=== PATIENT | female | born 1980 | race Two or more races ===

== ENCOUNTER 2016-11-03 12:51 | Emergency (ER) | payer SELFPAY ==
[~2016-11-03] VITALS: Ht 175.3 cm; Wt 74.8 kg
[2016-11-03] MEDS ORDERED: NKM (13:21)
[2016-11-03 14:51] LABS: BASOPHILS % (AUTO) 0.6 % (0.0-2.0); EOSINOPHILS % (AUTO) 1.2 % (0.0-3.0); LYMPHOCYTES % (AUTO) 38.9 % (20.0-45.0); MEAN CORPUSCULAR HEMOGLOBIN 34.2 PG (27.0-31.0); MEAN CORPUSCULAR HGB CONC 34.6 G/DL (32.0-36.0); MEAN CORPUSCULAR VOLUME 99 FL (80-99); MEAN PLATELET VOLUME 6.2 FL (6.5-10.1); MONOCYTES % (AUTO) 12.4 % (1.0-10.0); NEUTROPHILS % (AUTO) 46.8 % (45.0-75.0); PLATELET COUNT 334 K/UL (150-450); RED BLOOD COUNT 4.23 M/UL (4.20-5.40); RED CELL DISTRIBUTION WIDTH 10.4 % (11.6-14.8); WHITE BLOOD COUNT 5.7 K/UL (4.8-10.8)
[2016-11-03 14:52] VITALS: BP 120/75
[2016-11-03 14:52] LABS: APPEARANCE,URINE CLEAR; KETONES,URINE NEGATIVE (NEGATIVE); LEUKOCYTE ESTERASE ,URINE NEGATIVE (NEGATIVE); NITRITE,URINE NEGATIVE (NEGATIVE); PH,URINE 6 (4.5-8.0); PROTEIN,URINE NEGATIVE (NEGATIVE); UROBILINOGEN,URINE NORMAL MG/DL (0.0-1.0)
[2016-11-03] MEDS ORDERED: PEPCID20 MG ORAL (14:52)
[2016-11-03] MEDS ORDERED: ZOFRAN ODT4 MG ORAL (14:52)
--- NOTE | 2016-11-03 14:57 | Emergency Room Report ---
History of Present Illness General Chief Complaint: Nausea, Vomiting, and Diarrhea Source: Patient Present Illness HPI 36 YO F presents with 3 days nausea, watery diarrhea and watery vomiting. Assoc with intermittent abd spasm. Patient states [facility] when she was [place] for business - continued to work then and currently - mom who is RN told patient to go to ER because last episode of vomiting she noticed "blood tinged vomit." Denies previous abd/pelvic surgery, on AC/ASA, foreign travel, fever/chills, urinary complaints or sick contacts. Has been taking lots of OTC "Stomach meds" for 3 days with some improvement. Last episode vomiting or diarrhea was last night. Allergies: Coded Allergies: No Known Allergies (Unverified , 11/03/16) Patient History Past Medical History: none Past Surgical History: none Pertinent Family History: none Social History: Denies: alcohol use, drug use, smoking Now: No : 0 Para: 0 Immunizations: UTD Reviewed Nursing Documentation: PMH: Agreed, PSxH: Agreed Nursing Documentation-PMH Past Medical History: No Stated History Review of Systems All Other Systems: negative except mentioned in HPI Physical Exam Vital Signs Date Time Temp Pulse Resp B/P Pulse Ox O2 Delivery O2 Flow Rate FiO2 11/03/16 13:14 98.2 59 16 120/75 99 Sp02 EP Interpretation: reviewed, normal General Appearance: normal inspection, well appearing, no apparent distress, alert, GCS 15, non-toxic Head: normocephalic, atraumatic Eyes: bilateral eye EOMI, bilateral eye PERRL ENT: normal ENT inspection, hearing grossly normal, normal voice Neck: normal inspection, full range of motion, supple, no bony tend Respiratory: normal inspection, lungs clear, normal breath sounds, no respiratory distress, no retraction, no wheezing Cardiovascular #1: regular rate, rhythm, no edema Gastrointestinal: normal inspection, normal bowel sounds, non tender, soft, no mass, no organomegaly, no bruit, non-distended, no guarding, no hernia, no pulsatile mass, no rebound Musculoskeletal: normal inspection, back normal, normal range of motion, Pippa' s Sign negative Neurologic: normal inspection, alert, oriented x3, responsive, environmental assistant III-XII nml as tested, motor strength/tone normal, speech normal Psychiatric: normal inspection, judgement/insight normal Skin: normal inspection Lymphatic: normal inspection Medical Decision Making Diagnostic Impression: Primary Impression: Nausea, vomiting, and diarrhea ER Course 36 YO F with likely viral gastroenteritis. VSS. Afebrile DC Labs: H&H stable. No leuks. Lipase and bili normal. Patient feels much better. Additional anti-emetic given in ED Patient was hydrated with IVF Tolerating PO Exam continues to be non-focal on serial exam of abdomen Likely viral gastroenteritis Low suspicion for acute bacterial or surgical process at this time Rx Pepcid, Zofran Advised BRAT diet, fluids and PMD followup Understands to Return to ER for worsening, focal abd pain, fever/chills or inability to tolerate PO Last Vital Signs Date Time Temp Pulse Resp B/P Pulse Ox O2 Delivery O2 Flow Rate FiO2 11/03/16 13:14 98.2 59 16 120/75 99 Status: improved Disposition: HOME, SELF-CARE Condition: Improved Scripts Famotidine (PEPCID) 20 Mg Tablet 20 MG ORAL BID for 7 Days, #14 TAB 0 Refills Prov: JUAN CONTEH M.D. 11/03/16 Ondansetron Odt* (ZOFRAN ODT*) 4 Mg Tab.rapdis 4 MG ORAL Q6H Y for Nausea & Vomiting, #20 TAB 0 Refills Prov: JUAN CONTEH M.D. 11/03/16 Referrals: NOT CHOSEN [facility]/,REFERRING (PCP) Patient Instructions: Viral Gastroenteritis, Adult, [id number] Additional Instructions: - eat only bland meals - bananas/rice/apple sauce/toast as tolerated - Drink plenty of fluids - Follow up with primary care doctor in 2-3 days if no improvement - Take pepcid twice daily until symptoms resolve - Take zofran for nausea - Return to ER for severe worsening of pain in one area with fever and uncontrollable vomiting JUAN CONTEH M.D. Nov 03, 2016 14:57
[2016-11-03] MEDS ORDERED: Famotidine 20 MG/ 2ML VIAL IVP ONE (15:00)
[2016-11-03 15:04] LABS: INR 1.1 (0.9-1.1); PROTHROMBIN TIME 10.8 SEC (9.30-11.50)
[2016-11-03 15:09] LABS: ALANINE AMINOTRANSFERASE 22 U/L (3-33); ALBUMIN/GLOBULIN RATIO 1.5 (1.0-2.7); ANION GAP 17 (5-15); ASPARTATE AMINO TRANSFERASE 24 U/L (5-40); CALCIUM 9.1 mg/dL (8.6-10.2); CARBON DIOXIDE 25 mEQ/L (20-30); CHLORIDE 96 mEQ/L (98-107); CREATININE 0.8 mg/dL (0.5-0.9); GLOMERULAR FILTRATION RATE > 60 mL/min (>60); HEMOLYSIS 6; LIPASE 57 U/L (< 60); POTASSIUM 3.6 mEQ/L (3.4-4.9); SODIUM 138 mEQ/L (135-145); TOTAL PROTEIN 7.4 g/dL (6.6-8.7)
[2016-11-03 15:24] VITALS: BP 120/75
== END 2016-11-03 15:31 | disposition home or self-care (01) ==
LOC: EMR 13:50
DX: R11.2 Nausea with vomiting, unspecified (principal); R19.7 Diarrhea, unspecified
CPT/HCPCS: 36415; 80053; 81003; 83690; 85025; 85610; 85730; 86850; 86900; 86901; 96360; 96374; 96375; 99284; J2405; S0028